=== PATIENT | female | born 1990 | race Caucasian/White ===

== ENCOUNTER 2022-11-02 02:06 | Emergency (ER) | payer OTHER ==
[~2022-11-02] VITALS: Ht 160 cm; Wt 95.5 kg
[~2022-11-02 02:06] MED LIST: IBUP-1573 PO; Mucinex; aspirin; tylenol
[2022-11-02] MEDS ORDERED: acetaminophen 325mg tablet PO ONE (02:25)
== END 2022-11-02 05:00 | disposition left against medical advice (07) ==
LOC: ER 02:06
DX: J00 Acute nasopharyngitis [common cold] (principal); R51.9 Headache, unspecified; R05.9 Cough, unspecified; R09.89 Other specified symptoms and signs involving the circulatory and respiratory systems; Z53.21 Procedure and treatment not carried out due to patient leaving prior to being seen by health care provider